=== PATIENT | female | born 2000 | race Caucasian/White ===

== ENCOUNTER 2022-11-25 16:42 | Inpatient (IN) ==
[2022-11-25 20:15] LABS: Urine Appearance Clear; Urine Bilirubin Negative (Negative); Urine Blood 3+ (Negative); Urine Color Straw; Urine Glucose Negative (Negative); Urine Ketones Negative (Negative); Urine Nitrite Negative (Negative); Urine Protein Negative (Negative); Urine Specific Gravity 1.002 (1.002-1.030); Urine Urobilinogen Negative (Negative)
[2022-11-25 20:19] LABS: Urine Bacteria 1+ (Absent); Urine Red Blood Cell Trace(0-2/hpf) (Absent); Urine White Blood Cell Trace(0-5/hpf) (Absent)
[2022-11-25 20:26] LABS: Urine Benzodiazepine Screen None Detected (None Detect); Urine Cannabinoids Screen None Detected (None Detect); Urine Opiates Screen None Detected (None Detect)
[2022-11-25] MEDS ORDERED: Al Hydrox/Mg Hydrox/Simet LIQ 30 ML UDC PO PRN (23:08)
[2022-11-26 07:23] LABS: ABS Basophils 0.1 10^3/uL (0.0-0.1); ABS Eosinophils 0.2 10^3/uL (0.0-0.5); ABS Lymphocytes 3.2 10^3/uL (1.0-4.8); ABS Monocytes 0.6 10^3/uL (0.0-0.9); ABS Neutrophils 3.8 10^3/uL (1.5-7.6); ABS Nucleated RBC 0.02 10^3/ul; Eosinophil % 2.9 %; Hematocrit 37.8 % (35-45); Lymphocyte % 40.4 %; Mean Corpuscular Hgb Conc 34.4 g/dL (31-36); Mean Corpuscular Volume 87.3 fL (80-97); Mean Platelet Volume 7.9 fL (7.5-11.2); Nucleated Red Blood Cells % 0.2 /100 WBC (0.0-0.4); Platelet Count 277 10^3/uL (150-450); Red Blood Count 4.33 10^6/uL (3.63-4.92); Red Cell Distribution Width 13.6 % (12-17); White Blood Count 7.9 10^3/uL (3.8-11.8)
[2022-11-26 07:39] LABS: ALT 16 U/L (7-52); AST 17 U/L (13-39); Albumin 3.9 g/dL (3.2-5.2); Albumin/Globulin Ratio 1.4 (1-3); Alkaline Phosphatase 65 U/L (35-149); Anion Gap 9 mmol/L (2-16); Blood Urea Nitrogen 12 mg/dL (6-24); CO2 Carbon Dioxide 26 mmol/L (22-32); Calcium 8.6 mg/dL (8.6-10.3); Chloride 104 mmol/L (101-111); Cholesterol 126 mg/dL; Creatinine, Serum 0.88 mg/dL (0.51-0.95); Globulin 2.8 g/dL (2-4); Glucose 101 mg/dL (70-100); HDL Cholesterol 48.7 mg/dL; LDL Cholesterol 64 mg/dL; Potassium 4.1 mmol/L (3.5-5.0); Sodium 139 mmol/L (135-145); Total Protein 6.7 g/dL (6.4-8.9); Triglycerides 68 mg/dL; eGFR CKD-EPI 94.1 (>60)
[2022-11-26 07:46] LABS: HCG Pregnancy < 0.60 mIU/mL
[2022-11-26 08:16] LABS: TSH Ultra Thyroid Stim Horm 2.28 mcIU/mL (0.34-5.60)
[2022-11-26] MEDS: Vitamin THERAPEUTIC TAB PO SCH (09:35)
[2022-11-27 11:35] VITALS: BP 122/80
[2022-11-27] MEDS: Vitamin THERAPEUTIC TAB PO SCH (12:20)
== END 2022-11-27 13:00 | disposition home or self-care (01) | DRG 351 ==
LOC: ED 16:42 → EDHOLD 22:10 → BSU 22:35
PROVIDERS: ADMIT Psychiatry & Neurology Addiction Psychiatry; ATTEND Psychiatry & Neurology Psychiatry